=== PATIENT | female | born 1960 | race Caucasian/White ===

== ENCOUNTER 2017-04-24 06:09 | Day surgery (SDC) | payer BC, OTHER ==
[2017-04-17 13:42] VITALS: BMI 22.4
[2017-04-24] MEDS ORDERED: LIDOCAINE HCL 1%, 10 MG/ML (20ML VIAL) ONE (06:58)
[2017-04-24] MEDS ORDERED: BUPIVACAINE HCL/PF 2.5 MG/ML - 30 ML VIAL IJ ONE (06:58)
[2017-04-24] MEDS ORDERED: BACITRACIN 15 GM TUBE TOPICAL OINTMENT ONE (06:58)
[2017-04-24] MEDS ORDERED: GENTAMICIN SO4 80 MG/2 ML VIAL ONE (06:58)
[2017-04-24] MEDS ORDERED: ceFAZolin SODIUM 1 GM VIAL ONE (06:58)
[2017-04-24] MEDS ORDERED: BUPIVACAINE HCL/PF 0.5% (5MG/ML) 10 ML VIAL ONE (06:59)
[2017-04-24] MEDS ORDERED: LIDOCAINE HCL/EPINEPHRINE/PF 20 ML VIAL ONE (06:59)
[2017-04-24] MEDS ORDERED: MIDAZOLAM HCL 2 MG/2 ML SINGLE DOSE VIAL ONE (07:34)
[2017-04-24] MEDS ORDERED: PROPOFOL 20 ML ONE (07:44)
[2017-04-24] MEDS ORDERED: DESFLURANE GAS 240 ML BOTTLE IH ONE (08:47)
[2017-04-24] MEDS ORDERED: PROMETHAZINE HCL 25 MG/1 ML VIAL IVPUSH PRN (10:01)
[2017-04-24] MEDS ORDERED: oxyCODONE HCL 5 MG TABLET PO PRN ×2 (10:01)
[2017-04-24] MEDS ORDERED: ONDANSETRON 4 MG/2 ML VIAL IVPUSH PRN (10:01)
--- NOTE | 2017-04-24 10:02 | OP ---
Operative Note - Note: Operative Date: 04/24/17 Pre-Operative Diagnosis: Aquired chest wall deformity Operation: Bilateral breasts implants exchange with capsulectomy, and fat transfer from abdomen, flanks,and thighs to breasts. Dog ear revision and abdominal scar revsion Findings: Asymmetry of breasts Implants: Silicone Post-Operative Diagnosis: Same as Pre-op Surgeon: Som Urrutia [employer] Underwriter: Anaid Caceres Anesthesiologist/QUALITY TECHNICIAN FIBERGLASS: Gregorio Richmond Anesthesia: General Specimens Removed: Left breast capsule, abdominal skin Estimated Blood Loss (mls): 40 Drains & Tubes with Location: none
[2017-04-24] MEDS ORDERED: ONDANSETRON 4 MG/2 ML VIAL ONE (10:14)
[2017-04-24] MEDS ORDERED: LACTATED RINGERS SOLUTION 1,000 ML IV SCH (10:15)
[2017-04-24] MEDS ORDERED: oxyCODONE HCL 5 MG TABLET ONE (12:11)
[2017-04-24 12:23] VITALS: TEMP 97.9
[2017-04-24 14:18] VITALS: BP 110/67; PULSE 72
--- NOTE | 2017-04-28 15:09 | PATH ---
Surgical Pathology Report Patient Name: ANTHONY RAWLS [facility]. Rec. #: [id number] /Age/Gender: 1960 (Age: 57) / F Account: [id number] Location: [facility] Taken: 04/24/2017 Received: 04/24/2017 Reported: 04/28/2017 Physicians: Som Urrutia Specimen(s) Received A: LEFT BREAST CAPSULE B: BILATERAL BREAST IMPLANTS Clinical History Bilateral mastectomy Final Diagnosis A. CAPSULE, LEFT BREAST, CAPSULECTOMY: FIBROUS CAPSULE. B. BILATERAL BREAST IMPLANTS, REMOVAL: IMPLANTS, DESCRIBED (GROSS EXAMINATION ONLY). Electronically Signed Deepti Lowe M.D. Gross Description A. Received in formalin labeled "left breast capsule," are 2 richardson, irregular portions of fibrous tissue measuring 1.5 x 0.7 x 0.2 cm and 1.3 x 0.6 x 0.2 cm, consistent with portions of breast capsule. No discrete masses are identified. The specimens are sectioned and entirely submitted in one cassette. B. Received fresh labeled "bilateral breast implants," are 2 clear, rubbery breast implants averaging 12.5 cm in diameter and 4 cm in depth. No soft tissue is present. No sections are submitted, gross only. 04/25/201704/25/2017
== END 2017-04-24 14:18 | disposition home or self-care (01) ==
LOC: FASU 06:09
PROVIDERS: ATTEND Plastic Surgery
PROC: 0HPT0JZ Removal of Synthetic Substitute from Right Breast, Open Approach (ICD-10-PCS; 2017-04-24)
PROC: 0HUU0JZ Supplement Left Breast with Synthetic Substitute, Open Approach (ICD-10-PCS; 2017-04-24)
PROC: 0HUT0JZ Supplement Right Breast with Synthetic Substitute, Open Approach (ICD-10-PCS; 2017-04-24)
PROC: 0HNT0ZZ Release Right Breast, Open Approach (ICD-10-PCS; 2017-04-24)
PROC: 0HRV0JZ Replacement of Bilateral Breast with Synthetic Substitute, Open Approach (ICD-10-PCS; principal; 2017-04-24 08:07)
PROC: 0HPU0JZ Removal of Synthetic Substitute from Left Breast, Open Approach (ICD-10-PCS; 2017-04-24 08:07)
DX: M95.4 Acquired deformity of chest and rib (principal); Z90.13 Acquired absence of bilateral breasts and nipples; N65.0 Deformity of reconstructed breast; T85.41XA Breakdown (mechanical) of breast prosthesis and implant, initial encounter; Y83.8 Other surgical procedures as the cause of abnormal reaction of the patient, or of later complication, without mention of misadventure at the time of the procedure; Y92.89 Other specified places as the place of occurrence of the external cause
CPT/HCPCS: 88300-TC; 88304-TC; 94760